=== PATIENT | female | born 1985 | race Caucasian/White ===

== ENCOUNTER 2016-04-21 18:06 | Emergency (ER) | payer MEDICAID ==
--- NOTE | 2016-04-21 21:07 | Emergency Department Report ---
HPI - General Chief Complaint: Sore Throat Time Seen by Provider: 04/21/16 21:06 - HPI HPI: Patient here reports that throat with swelling and pain. Swallowed it she says she has a history of swollen lymph nodes in the past. She says she was feeling this way about a week and a half ago and she took some medication and Symptoms went away. She said now she is back and she is having swollen lymph nodes and sore throat. Denies any difficulty swallowing or breathing reports it 's painful. She reports that her tonsils are swollen. Denies any shortness of breath or chest pain. She reports fever and chills. She took [id number] pain medication earlier today. Denies any abdominal or back pain. Patient says she coughed and vomited twice today but she denies any nausea at present. Blood pressure is 161/101 and she says she has high blood pressure with and gestational diabetes with all her kids but she is not on any medication. ED Past Medical Hx - Past Medical History Previous Medical History?: Yes Hx Hypertension: Yes (not on meds, gestational) Hx Congestive Heart Failure: No Hx Diabetes: Yes (GDM WITH ALL 3 PREGNACIES) Hx Deep Vein Thrombosis: No Hx Renal Disease: No Hx Sickle Cell Disease: No Hx Seizures: No Hx Asthma: No Hx COPD: No Hx HIV: No - Surgical History Past Surgical History?: No - Family History Family history: hypertension - Social History Smoking Status: Former Smoker Substance Use Type: Alcohol - Medications Home Medications: Home Medications Medication Instructions Recorded Confirmed Last Taken Type Pnv with Ca,No.72/Iron/FA 1 tab PO DAILY 08/25/13 03/04/14 03/03/14 10:00 History [ Plus Tablet] 1 tablet Ferrous Sulfate [Feosol 325 MG tab] 325 mg PO BID #60 tablet 03/04/14 Unknown Rx Ibuprofen [Motrin 800 MG tab] 800 mg PO Q8H PRN #30 tablet 03/04/14 Unknown Rx Oxycodone HCl/Acetaminophen 1 each PO Q6HR PRN #30 tablet 03/04/14 Unknown Rx [Percocet 7.5-325 mg] glyBURIDE/METFORMIN HCL 1 tab PO BID 03/04/14 03/04/14 03/03/14 20:30 History [glyBURIDE-Metformin 1.25-250 mg] 500 mg Labetalol [Normodyne TAB] 200 mg PO BID #60 tablet 03/05/14 Unknown Rx Butalbit/Acetamin/Caff/Codeine 1 cap PO Q8HR PRN #14 cap 10/31/15 Unknown Rx [Fioricet/Codeine 87-157-49-30] Ibuprofen [Motrin 800 MG tab] 800 mg PO TID PRN #15 tablet 04/21/16 Unknown Rx ED Review of Systems ROS: Stated complaint: SWOLLEN THROAT Other details as noted in HPI Comment: All other systems reviewed and negative Constitutional: chills, fever Eyes: denies: eye pain, vision change ENT: throat pain. denies: ear pain, congestion Respiratory: cough. denies: shortness of breath, SOB with exertion, SOB at rest , stridor, wheezing Cardiovascular: denies: chest pain, palpitations, edema, syncope Gastrointestinal: vomiting. denies: abdominal pain, nausea, diarrhea Musculoskeletal: denies: back pain, arthralgia Skin: denies: rash Neurological: denies: headache, weakness, numbness, paresthesias, confusion, abnormal gait, vertigo Hematological/Lymphatic: swollen glands Physical Exam - Physical Exam Vital Signs: Vital Signs 04/21/16 18:19 Temperature 98.3 F Pulse Rate 93 H Respiratory 20 Rate Blood Pressure 161/101 O2 Sat by Pulse 100 Oximetry Vital Signs 04/21/16 04/21/16 18:19 21:12 Temperature 98.3 F Pulse Rate 93 H 72 Respiratory 20 Rate Blood Pressure 161/101 Blood Pressure 160/80 [Left] O2 Sat by Pulse 100 Oximetry General: This is a 31-year-old female well-nourished well-developed in no acute distress. Physical Exam: Head: Normocephalic atraumatic Mouth: Moist, positive pharyngeal exudate and erythema.positive tonsillar enlargement wit erythema. Uvula is midline and oral airway is patent. No facial swelling. No peritonsillar abscesses. Nose: Nasal mucosa without congestion or erythema . Maxillary and frontal sinuses nontender to palpate Neck: Supple, no C-spine tenderness, no tracheal deviation. Nontender to palpate. no adenopathy Ears: Bilateral TMs pearly lopez. bilateral EAC without any redness swelling or drainage. Bilateral otitis nontender to palpate Abdomen: Soft, nontender to palpate in all quadrants, normal bowel sounds in all quadrant and negative CVA tenderness bilaterally. Eyes: Bilateral pupils equal and reactive to light, bilateral EOM intact. Bilateral sclera and conjunctiva without injection. Normal accommodation. No nystagmus Lungs: Clear to auscultate bilaterally no rhonchi wheezes or rales. Normal work of breathing. No stridor. extremity; No CCE. +2 pulses. No neurovascular compromise Cardiovascular: S1-S2, regular rate rhythm. No murmurs. Skin: clean Dry and intact no rash no lesions Psych: Normal mood and behavior ED Course Vital Signs 04/21/16 18:19 Temperature 98.3 F Pulse Rate 93 H Respiratory 20 Rate Blood Pressure 161/101 O2 Sat by Pulse 100 Oximetry Vital Signs 04/21/16 04/21/16 18:19 21:12 Temperature 98.3 F Pulse Rate 93 H 72 Respiratory 20 Rate Blood Pressure 161/101 Blood Pressure 160/80 [Left] O2 Sat by Pulse 100 Oximetry - Reevaluation(s) Reevaluation #1: 04/21/16 21:22 Patient was given option to have Bicillin shot or to take amoxicillin to treat strep throat and she chose to have Bicillin shot. She was also given Decadron 60 mg and Motrin 800 mg by mouth. ED Medical Decision Making - Lab Data Strep test positive - Medical Decision Making ED course: Discussed the patient that her strep test is positive and will be treated with antibiotic. She was given option to be treated with Bicillin LA as 1 time treatment for antibiotic pills as prescription and she chose to be treated in emergency room with Bicillin LA. She given Bicillin LA 1.2 fany units, Deltasone 60 mg by mouth for tonsillar swelling and Motrin 800 mg by mouth for sore throat. She was monitored in emergency room and had no adverse reaction and said she felt better. I also discussed with patient that she should not expect to wake up tomorrow or the next morning in the curative strep throat because the Bicillin long-acting antibiotic and he takes up to 2 weeks to be effective. I discussed with her she can go back to work in 2 days. I discussed with her that she can take Motrin as needed for sore throat. She was understanding of discharge diagnosis and treatment plan and discharged home with prescription for Motrin. Critical care attestation.: If time is entered above; I have spent that time in minutes in the direct care of this critically ill patient, excluding procedure time. ED Disposition Clinical Impression: Strep throat, Tonsillar enlargement Hypertension Qualifiers: Hypertension type: essential hypertension Qualified Code(s): I10 - Essential ( primary) hypertension Disposition: DISCHARGED TO HOME OR SELFCARE Is pt being admited?: No Does the pt Need Aspirin: No Condition: Stable Instructions: Hypertension (ED), Strep Throat (ED) Additional Instructions: Please take your medication as instructed. If you continue to have strep throat he will need to follow-up with ear nose and throat doctor for possible tonsil removal. You received Bicillin LA in the emergency room today which is a long-acting antibiotic. You will not need any other antibiotic. Your blood pressure was elevated today And if continues to be elevated you will need to be evaluated by a primary care physician These keep a log of Blood pressure Prescriptions: Ibuprofen [Motrin 800 MG tab] 800 mg PO TID PRN #15 tablet PRN Reason: Sore Throat Referrals: TAE DE LA FUENTE MD [Staff Physician] - 3-5 Days JOSÉ MIGUEL LAST MD [Staff Physician] - 3-5 Days Forms: Accompanied Note, Work/School Release Form(ED)
[2016-04-21] MEDS ORDERED: MOTRIN PO ONE (21:10)
[2016-04-21] MEDS ORDERED: BICILLIN L-A IM ONE (21:10)
[2016-04-21] MEDS ORDERED: DELTASONE PO ONE (21:10)
[2016-04-21 21:13] VITALS: BP 160/80
== END 2016-04-21 22:13 | disposition home or self-care (01) ==
LOC: ED 18:06
DX: J02.0 Streptococcal pharyngitis (principal); J35.1 Hypertrophy of tonsils; I10 Essential (primary) hypertension; Z87.891 Personal history of nicotine dependence
CPT/HCPCS: 87430; 96372; 99282; J0561; J7512

== ENCOUNTER 2016-08-24 12:56 | Emergency (ER) | payer SELFPAY ==
[2016-08-24 13:05] VITALS: BP 146/105
[2016-08-24 13:37] LABS: Eosinophils % (Auto) 2.1 % (0.0-4.3); Hematocrit 38.1 % (30.3-42.9); Hemoglobin 11.8 gm/dl (10.1-14.3); Mean Corpuscular HGB Conc 31 % (30-34); Platelet Count 270 K/mm3 (140-440); Red Blood Count 6.97 M/mm3 (3.65-5.03); Red Cell Distribution Width 16.7 % (13.2-15.2); White Blood Count 9.3 K/mm3 (4.5-11.0)
[2016-08-24 13:38] LABS: Mean Corpuscular Hemoglobin 17 pg (28-32); Mean Corpuscular Volume 55 fl (79-97)
[2016-08-24 13:55] LABS: Alanine Aminotransferase 80 units/L (7-56); Alkaline Phosphatase 99 units/L (35-129); Blood Urea Nitrogen 11 mg/dL (7-17); Calcium 8.8 mg/dL (8.4-10.2); Carbon Dioxide 24 mmol/L (22-30); Glucose 186 mg/dL (65-100); Lipase 18 units/L (13-60); Total Protein 8.1 g/dL (6.3-8.2)
[2016-08-24 13:56] LABS: Anion Gap 18 mmol/L; Potassium 4.4 mmol/L (3.6-5.0); Sodium 136 mmol/L (137-145)
[2016-08-24 15:10] LABS: Bilirubin,Urine NEG (Negative); Blood,Urine SM (Negative); Ketones,Urine NEG (Negative); Leukocyte Esterase,Urine SM (Negative); Nitrite,Urine NEG (Negative); Protein,Urine <15 mg/dL mg/dL (Negative); Urobilinogen,Urine < 2.0 mg/dL (<2.0)
[2016-08-24 15:49] LABS: Bacteria,Urine 1+ /HPF (Negative)
== END 2016-08-24 19:00 | disposition left against medical advice (07) ==
LOC: ED 12:56
DX: R10.2 Pelvic and perineal pain (principal); Z53.21 Procedure and treatment not carried out due to patient leaving prior to being seen by health care provider
CPT/HCPCS: 36415; 80053; 81001; 81025; 83690; 85025